=== PATIENT | male | born 1995 | race Two or more races ===

== ENCOUNTER 2024-10-16 08:13 | Emergency (ER) | payer SELFPAY ==
[~2024-10-16] VITALS: Ht 177.8 cm; Wt 95.0 kg
[2024-10-16 08:15] VITALS: O2SAT 98
[2024-10-16 09:34] LABS: BASOPHILS % 0.1 % (0.0-2.0); EOSINOPHILS % 1.2 % (0.0-5.0); HEMATOCRIT. 43.5 % (42.0-52.0); HEMOGLOBIN. 14.3 g/dL (14.0-18.0); LYMPHOCYTES % 25.6 % (20.0-50.0); MEAN CORPUSCULAR HEMOGLOBIN 28.8 pg (28.0-32.0); MEAN CORPUSCULAR VOLUME 87.3 fL (80.0-94.0); MEAN PLATELET VOLUME 8.4 fl (7.4-10.4); MONOCYTES % 8.8 % (2.0-8.0); NEUTROPHILS % 64.3 % (40.0-76.0); PLATELET 220 x1000/uL (130-400); RED BLOOD CELL COUNT 4.98 mill/uL (4.7-6.1); RED CELL DISTRIBUTION WIDTH 14.5 % (11.6-14.6); WHITE BLOOD COUNT 6.1 x1000/uL (4.5-11.0)
[2024-10-16 09:43] LABS: CHLORIDE 105 mEq/L (98-107); POTASSIUM 3.7 mEq/L (3.5-5.1); SODIUM 139 mEq/L (136-145)
[2024-10-16 09:44] LABS: CALCIUM 9.4 mg/dL (8.7-10.4); CARBON DIOXIDE 28 mEq/L (21-32)
[2024-10-16 09:49] LABS: CREATININE 0.9 mg/dL (0.6-1.3); GLUCOSE 92 mg/dL (70-105); UREA NITROGEN BLOOD 11 mg/dL (9-23)
[2024-10-16 09:51] LABS: ALANINE AMINOTRANSFERASE 16 IU/L (10-49); ALBUMIN 4.2 g/dL (3.2-4.8); ASPARTATE AMINOTRANSFERASE 17 IU/L (<34); BILIRUBIN TOTAL 0.5 mg/dL (0.1-1.0)
[2024-10-16 09:52] LABS: PROTEIN TOTAL 6.5 g/dL (6.0-8.3)
[2024-10-16 10:40] VITALS: BP 125/60; PULSE 97; RESP 17; TEMP 36.55848; O2SAT 99
== END 2024-10-16 10:40 | disposition home or self-care (01) ==
LOC: ER 08:13
DX: R56.9 Unspecified convulsions (principal); F84.0 Autistic disorder; G80.9 Cerebral palsy, unspecified
CPT/HCPCS: 80053; 85025; 36415; 70450; 93005; 99284; Z7610 ×2; A4663; A4606